=== PATIENT | female | born 1970 | race Caucasian/White ===

== ENCOUNTER 2019-05-18 18:14 | Observation (INO) ==
[2019-05-18] MEDS ORDERED: TESSALON PERLES PO PRN (19:14)
[2019-05-18] MEDS ORDERED: NS 1000 ML 1,000 ML IV ONE (19:14)
[2019-05-18] MEDS ORDERED: NS 1000 ML 1,000 ML ONE ×2 (19:18→19:36)
[2019-05-18 19:54] LABS: BASOPHILS % (AUTO) 0 % (0.2-1.0); EOSINOPHILS % (AUTO) 0.2 % (0.9-2.9); HEMATOCRIT 35.5 % (36.0-47.0); HEMOGLOBIN 12.2 g/dL (12.0-16.0); LYMPHOCYTES # (AUTO) 1.7 X10^3/uL (1.3-2.9); MEAN CORPUSCULAR HEMOGLOBIN 30.1 pg (27.0-34.0); MEAN CORPUSCULAR HGB CONC 34.4 g/dL (33.0-35.0); MEAN CORPUSCULAR VOLUME 87.5 fL (80.0-100.0); MEAN PLATELET VOLUME 8.2 fL (7.4-11.0); MONOCYTES # (AUTO) 0.8 x10^3/uL (0.3-0.8); MONOCYTES % (AUTO) 7.8 % (0.0-13.0); NEUTROPHILS # (AUTO) 7.3 x10^3/uL (2.2-4.8); PLATELET COUNT 193 X10^3/uL (150.0-450.0); RED BLOOD COUNT 4.06 X10^6/uL (3.5-5.4); RED CELL DISTRIBUTION WIDTH 13.7 % (11.6-16.5); WHITE BLOOD COUNT 9.8 X10^3/uL (3.6-10.0)
[2019-05-18 20:04] LABS: ALANINE AMINOTRANSFERASE 35 Units/L (12-78); ALBUMIN 3.7 g/dL (3.4-5.0); ALKALINE PHOSPHATASE 128 Units/L (46-116); ASPARTATE AMINO TRANSFERASE 14 Units/L (15-37); BLOOD UREA NITROGEN 19 mg/dL (7-18); CALCIUM 8.5 mg/dL (8.5-10.1); CARBON DIOXIDE 25.9 mmol/L (21-32); CHLORIDE 105 mmol/L (98-107); SODIUM 141 mmol/L (136-145); TOTAL PROTEIN 7.1 g/dL (6.4-8.2); eGFR NON BLACK RACES > 60 (>60)
[2019-05-18] MEDS ORDERED: TESSALON PERLES PO ONE (20:26)
[2019-05-18] MEDS: NS 1000 ML 1,000 ML IV SCH (20:29)
[2019-05-18] MEDS ORDERED: AMBIEN ONE (20:53)
[2019-05-18] MEDS: AMBIEN PO PRN (20:55)
[2019-05-18] MEDS ORDERED: MICRO K EXTEN CAP 10 MEQ PO PRN (21:33)
[2019-05-18] MEDS ORDERED: POTASSIUM CHL 40 MEQ/NS 0.45% 500 ML IV PRN (21:33)
[2019-05-18] MEDS ORDERED: POTASSIUM CHLORIDE LIQ 20 MEQ UDC PO PRN (21:33)
[2019-05-18] MEDS ORDERED: KLOR-CON PO PRN (21:33)
[2019-05-18] MEDS ORDERED: POTASSIUM CHL 60 MEQ/NS 0.45% 500 ML IV PRN (21:33)
[2019-05-18] MEDS ORDERED: K-RIDER 10 MEQ/NS 100 ML 10 MEQ/100 ML BAG IV PRN (21:33)
[2019-05-18] MEDS: K-DUR TAB 20 MEQ PO PRN ×2 (21:35→21:42)
[2019-05-18] MEDS ORDERED: MAGNESIUM SULFATE 1 GRAM/100 mL PREMIX 2 G/200 ML BAG IV ONE (21:39)
[2019-05-18] MEDS ORDERED: K-DUR TAB 20 MEQ PO ONE (21:39)
[2019-05-18] MEDS: MAGNESIUM SULFATE 1 GRAM/100 mL PREMIX 1 GM/100 ML BAG IV PRN ×2 (21:43→22:40)
[2019-05-18 23:03] VITALS: BMI 24.7
[2019-05-18] MEDS ORDERED: TYLENOL 325 MG TAB PO ONE (23:19)
[2019-05-18] MEDS: TYLENOL 325 MG TAB PO PRN (23:20)
[2019-05-18] MEDS: OMNICEF CAP 300 MG PO SCH (23:59)
[2019-05-19 05:39] LABS: BASOPHILS % (AUTO) 0.2 % (0.2-1.0); EOSINOPHILS % (AUTO) 0.4 % (0.9-2.9); HEMATOCRIT 31.7 % (36.0-47.0); LYMPHOCYTES # (AUTO) 2.8 X10^3/uL (1.3-2.9); LYMPHOCYTES % (AUTO) 32.3 % (21.0-51.0); MEAN CORPUSCULAR HEMOGLOBIN 30.7 pg (27.0-34.0); MEAN CORPUSCULAR HGB CONC 34.7 g/dL (33.0-35.0); MEAN CORPUSCULAR VOLUME 88.5 fL (80.0-100.0); MEAN PLATELET VOLUME 9.3 fL (7.4-11.0); MONOCYTES # (AUTO) 1.2 x10^3/uL (0.3-0.8); MONOCYTES % (AUTO) 13.4 % (0.0-13.0); NEUTROPHILS # (AUTO) 4.7 x10^3/uL (2.2-4.8); NEUTROPHILS % (AUTO) 53.7 % (42.0-75.0); PLATELET COUNT 163 X10^3/uL (150.0-450.0); RED BLOOD COUNT 3.58 X10^6/uL (3.5-5.4); RED CELL DISTRIBUTION WIDTH 13.6 % (11.6-16.5); WHITE BLOOD COUNT 8.8 X10^3/uL (3.6-10.0)
[2019-05-19 05:44] LABS: ALANINE AMINOTRANSFERASE 29 Units/L (12-78); ALBUMIN 2.8 g/dL (3.4-5.0); ALKALINE PHOSPHATASE 107 Units/L (46-116); ASPARTATE AMINO TRANSFERASE 13 Units/L (15-37); BLOOD UREA NITROGEN 12 mg/dL (7-18); CARBON DIOXIDE 24.4 mmol/L (21-32); CHLORIDE 113 mmol/L (98-107); CREATININE 0.62 mg/dL (0.55-1.02); MAGNESIUM 2.6 mg/dL (1.7-2.9); SODIUM 144 mmol/L (136-145); TOTAL PROTEIN 5.8 g/dL (6.4-8.2); eGFR NON BLACK RACES > 60 (>60)
[2019-05-19] MEDS: NS 1000 ML 1,000 ML IV SCH ×2 (06:08→08:49)
[2019-05-19] MEDS ORDERED: NS 1000 ML 1,000 ML IV ONE (06:19)
[2019-05-19] MEDS: OMNICEF CAP 300 MG PO SCH ×2 (08:49→21:03)
[2019-05-19 11:28] LABS: CRYPTOSPORIDIUM PARVUM ANTIGEN NEGATIVE (NEGATIVE); GIARDIA LAMBLIA ANTIGEN NEGATIVE (NEGATIVE)
--- NOTE | 2019-05-19 11:56 | DR.H&P ---
H&P History & Physical for Day of: H&P Date: 05/19/19 Chief Complaint Chief Complaint: Diarrhea and decreased fluid intake Allergies Allergies Allergy/AdvReac Type Severity Reaction Status Date / Time Sulfa (Sulfonamide Allergy Verified 05/18/19 21:09 Antibiotics) [SULFA] History of Present Illness History of Present Illness: Pt is a 49 year old f admitted directly from clinic d/t dehydration and persistent diarrhea. She was recently treated for the flu and just finished course of Tamiflu. She has been having diarrhea since flu sx initially started, now for almost a week. Associated sx of generalized weakness, fatigue, and weight loss of 13 lbs. Past Surgical History Surgical History: Hysterectomy and Ortho Surgery Family History Family Medical History: Diabetes Mellitus and Hypertension Social History Does patient currently use any type of tobacco product: No Type of Tobacco Use: None Does any household member use tobacco: No Alcohol Use: None Drug Use: None Medications Home Medications: Sulfa (Sulfonamide Antibiotics) [SULFA] Allergy (Verified 05/18/19 21:09) CONTINUE taking the following medications alprazolam 1 mg PO BID PRN 05/18/19 [History] buprenorphine HCl 8 mg SUBLINGUAL TID 05/18/19 [History] carisoprodol 350 mg PO BID 05/18/19 [History] naproxen 500 mg PO Q12H PRN 05/18/19 [History] topiramate 200 mg PO BID 05/18/19 [History] vortioxetine [Trintellix] 20 mg PO DAILY 05/18/19 [History] Labs Result Diagrams: 05/19/19 04:25 05/19/19 04:25 Labs: 05/19/19 09:59 Stool - Final Laboratory WBC 8.8 X10^3/uL (3.6-10.0) 05/19/19 04:25 RBC 3.58 X10^6/uL (3.5-5.4) 05/19/19 04:25 Hgb 11.0 g/dL (12.0-16.0) L 05/19/19 04:25 Hct 31.7 % (36.0-47.0) L 05/19/19 04:25 MCV 88.5 fL (80.0-100.0) 05/19/19 04:25 MCH 30.7 pg (27.0-34.0) 05/19/19 04:25 MCHC 34.7 g/dL (33.0-35.0) 05/19/19 04:25 RDW 13.6 % (11.6-16.5) 05/19/19 04:25 Plt Count 163 X10^3/uL (150.0-450.0) 05/19/19 04:25 MPV 9.3 fL (7.4-11.0) 05/19/19 04:25 Neut % (Auto) 53.7 % (42.0-75.0) 05/19/19 04:25 Lymph % (Auto) 32.3 % (21.0-51.0) 05/19/19 04:25 Sebastian % (Auto) 13.4 % (0.0-13.0) H 05/19/19 04:25 Eos % (Auto) 0.4 % (0.9-2.9) L 05/19/19 04:25 Baso % (Auto) 0.2 % (0.2-1.0) 05/19/19 04:25 Neut # (Auto) 4.7 x10^3/uL (2.2-4.8) 05/19/19 04:25 Lymph # (Auto) 2.8 X10^3/uL (1.3-2.9) 05/19/19 04:25 Sebastian # (Auto) 1.2 x10^3/uL (0.3-0.8) H 05/19/19 04:25 Eos # (Auto) 0.0 x10^3/uL (0.0-0.2) 05/19/19 04:25 Baso # (Auto) 0.0 X10^3/uL (0.0-0.1) 05/19/19 04:25 Absolute Nucleated RBC 0.0 /100WBC 05/19/19 04:25 Sodium 144 mmol/L (136-145) 05/19/19 04:25 Corrected Sodium TNP 05/19/19 04:25 Potassium 4.2 mmol/L (3.5-5.1) 05/19/19 04:25 Chloride 113 mmol/L (98-107) H 05/19/19 04:25 Carbon Dioxide 24.4 mmol/L (21-32) 05/19/19 04:25 BUN 12 mg/dL (7-18) 05/19/19 04:25 Creatinine 0.62 mg/dL (0.55-1.02) 05/19/19 04:25 Est GFR (MDRD) Af Amer > 60 (>60) 05/19/19 04:25 Est GFR (MDRD) Non-Af > 60 (>60) 05/19/19 04:25 Glucose 93 mg/dL (65-99) 05/19/19 04:25 Calcium 8.0 mg/dL (8.5-10.1) L 05/19/19 04:25 Corrected Calcium 9.0 mg/dL (8.5-10.1) 05/19/19 04:25 Magnesium 2.6 mg/dL (1.7-2.9) 05/19/19 04:25 Total Bilirubin 0.30 mg/dL (0.2-1.0) 05/19/19 04:25 AST 13 Units/L (15-37) L 05/19/19 04:25 ALT 29 Units/L (12-78) 05/19/19 04:25 Alkaline Phosphatase 107 Units/L (46-116) 05/19/19 04:25 Total Protein 5.8 g/dL (6.4-8.2) L 05/19/19 04:25 Albumin 2.8 g/dL (3.4-5.0) L 05/19/19 04:25 Globulin 3.0 g/dL (2.5-4.5) 05/19/19 04:25 Albumin/Globulin Ratio 0.9 Ratio (1.1-2.1) L 05/19/19 04:25 Stool Description 50g brown unformed 05/19/19 09:59 Stool Description 50g,brown,unformed 05/19/19 09:59 Stl Occult Blood (IFOB) Positive (NEGATIVE) A 05/19/19 09:59 Stool for White Cells Negative (NEGATIVE) 05/19/19 09:59 Stl C. diff Tox B Gene Negative (NEGATIVE) 05/19/19 09:59 Stl C. diff 027-NAP1-BI Negative (NEGATIVE) 05/19/19 09:59 Cryptosporid parvum Ag Negative (NEGATIVE) 05/19/19 09:59 Giardia lamblia Ag Negative (NEGATIVE) 05/19/19 09:59 Review of Systems Constitutional: Weakness and Malaise Eyes: No Symptoms Reported ENT: No Symptoms Reported Respiratory: No Symptoms Reported Cardiovascular: No Symptoms Reported Gastrointestinal: Diarrhea; denies Nausea and Vomiting Genitourinary: denies Dysuria and Hematuria Musculoskeletal: Other (generalized myalgia) Skin: No Symptoms Reported Neurological: No Symptoms Reported Physical Exam Vital Signs: Temperature 98.2 F Pulse Rate [Bilateral] 76 Respiratory Rate 20 Blood Pressure [Right Arm] 103/53 O2 Sat by Pulse Oximetry 100 Oriented: Normal Eyes: Normal Ear: Normal Nose: Normal Respiratory: Clear Throughout Cardiovascular: Normal : Normal Auscultation: Bowel Sounds: Increased Palpation: Normal Tenderness: Epigastric and Mild Skin: Normal Musculoskeletal: Normal Psychiatric: Normal Mood Description: Calm Speech Pattern: Clear Assessment/Plan (1) Dehydration: Status: Acute Plan: IVF, CLD, advance as tolerated (2) Diarrhea: Status: Acute Plan: StoolCx pending (3) Otitis media: Status: Acute Plan: Abx:Cefdinir Review H&P Reviewed: Yes Patient was examined?: Yes
[2019-05-19] MEDS ORDERED: SUBOXONE TAB SL SCH (14:00)
[2019-05-19] MEDS: TOPAMAX TAB 100 MG PO SCH ×2 (14:13→21:03)
[2019-05-19] MEDS: SOMA TAB 350 MG PO SCH ×2 (14:13→21:02)
[2019-05-19] MEDS: NAPROSYN PO PRN (14:14)
[2019-05-19] MEDS ORDERED: ZOFRAN INJ 4 MG VIAL IVP ONE (17:12)
[2019-05-19] MEDS ORDERED: ZOFRAN INJ 4 MG VIAL ONE (17:14)
[2019-05-19] MEDS: AMBIEN PO PRN (21:01)
[2019-05-19] MEDS: PATIENT'S HOME MEDICATION SL SCH (22:00)
[2019-05-20] MEDS: NS 1000 ML 1,000 ML IV SCH ×3 (03:23→23:30)
[2019-05-20] MEDS: ZOFRAN TAB 4 MG PO PRN (04:16)
[2019-05-20] MEDS: NAPROSYN PO PRN (04:16)
[2019-05-20] MEDS ORDERED: NS 100 ML IV 100 ML IV ONE (05:20)
[2019-05-20] MEDS: PATIENT'S HOME MEDICATION SL SCH ×3 (06:00→21:25)
[2019-05-20 06:06] LABS: BASOPHILS % (AUTO) 0.3 % (0.2-1.0); EOSINOPHILS # (AUTO) 0.1 x10^3/uL (0.0-0.2); EOSINOPHILS % (AUTO) 1.2 % (0.9-2.9); HEMATOCRIT 32.7 % (36.0-47.0); HEMOGLOBIN 11.2 g/dL (12.0-16.0); LYMPHOCYTES # (AUTO) 2.4 X10^3/uL (1.3-2.9); LYMPHOCYTES % (AUTO) 48.5 % (21.0-51.0); MEAN CORPUSCULAR HEMOGLOBIN 30.1 pg (27.0-34.0); MEAN CORPUSCULAR HGB CONC 34.3 g/dL (33.0-35.0); MEAN CORPUSCULAR VOLUME 87.7 fL (80.0-100.0); MEAN PLATELET VOLUME 8.6 fL (7.4-11.0); MONOCYTES # (AUTO) 0.6 x10^3/uL (0.3-0.8); MONOCYTES % (AUTO) 11.5 % (0.0-13.0); NEUTROPHILS # (AUTO) 1.9 x10^3/uL (2.2-4.8); NEUTROPHILS % (AUTO) 38.5 % (42.0-75.0); PLATELET COUNT 169 X10^3/uL (150.0-450.0); RED BLOOD COUNT 3.72 X10^6/uL (3.5-5.4); RED CELL DISTRIBUTION WIDTH 13.7 % (11.6-16.5); WHITE BLOOD COUNT 4.9 X10^3/uL (3.6-10.0)
[2019-05-20 06:19] LABS: ALANINE AMINOTRANSFERASE 36 Units/L (12-78); ALBUMIN 2.8 g/dL (3.4-5.0); ALKALINE PHOSPHATASE 127 Units/L (46-116); ASPARTATE AMINO TRANSFERASE 30 Units/L (15-37); BLOOD UREA NITROGEN 4 mg/dL (7-18); CALCIUM 8.2 mg/dL (8.5-10.1); CARBON DIOXIDE 23.7 mmol/L (21-32); CHLORIDE 114 mmol/L (98-107); COR CA(FOR HYPOALB) 9.2 mg/dL (8.5-10.1); CREATININE 0.55 mg/dL (0.55-1.02); SODIUM 145 mmol/L (136-145); TOTAL PROTEIN 5.8 g/dL (6.4-8.2); eGFR NON BLACK RACES > 60 (>60)
--- NOTE | 2019-05-20 08:48 | PCM.PROG ---
Progress Note Progress Note for Day of Date of Exam: 05/20/19 Subjective Subjective: Pt is a 49 y/o f admitted directly from clinic d/t dehydration and persistent diarrhea. She was recently treated for the flu and just finished course of Tamiflu. She has been having diarrhea since flu sx initially started, now for over a week now. She has been complaining of abdominal pain and reports having close to 12 BM yesterday. Stool culture prelim negative for campy, c. diff, however was positive for blood. Will get CT abd/pelv to rule out diverticulitis, increase IVF to 150ml/h. Consult [facility]rence for evaluation. Will keep on CLD until recs and can start immodium for sx relief. Past Medical Family Social History Past Med/Fam/Surg Hx: No changes since H&P Allergies: Allergies Sulfa (Sulfonamide Antibiotics) [SULFA] Allergy (Verified 05/18/19 21:09) Review of Systems ROS: No change since H&P Vital Signs and I&O's Vital Signs: Temperature 97.8 F Pulse Rate [Bilateral] 66 Respiratory Rate 18 Blood Pressure [Right Arm] 97/51 O2 Sat by Pulse Oximetry 99 Intake and Output: Intake & Output 05/17/19 05/18/19 05/19/19 05/20/19 23:59 23:59 23:59 23:59 Intake Total 1800 / 1800 6208 / 6208 625 / 625 Balance 1800 / 1800 6208 / 6208 625 / 625 Physical Exam Oriented: Normal Eyes: Normal Ear: Normal Nose: Normal Respiratory: Normal Cardiovascular: Normal : Normal Auscultation: Bowel Sounds: Increased Tenderness: Epigastric and Mild Skin: Normal Musculoskeletal: Normal Psychiatric: Normal Mood Description: Calm Speech Pattern: Clear and Appropriate Laboratory and Diagnostics Result Diagrams: 05/20/19 04:52 05/20/19 04:52 Labs: 05/19/19 09:59 Stool - Final Laboratory WBC 4.9 X10^3/uL (3.6-10.0) 05/20/19 04:52 RBC 3.72 X10^6/uL (3.5-5.4) 05/20/19 04:52 Hgb 11.2 g/dL (12.0-16.0) L 05/20/19 04:52 Hct 32.7 % (36.0-47.0) L 05/20/19 04:52 MCV 87.7 fL (80.0-100.0) 05/20/19 04:52 MCH 30.1 pg (27.0-34.0) 05/20/19 04:52 MCHC 34.3 g/dL (33.0-35.0) 05/20/19 04:52 RDW 13.7 % (11.6-16.5) 05/20/19 04:52 Plt Count 169 X10^3/uL (150.0-450.0) 05/20/19 04:52 MPV 8.6 fL (7.4-11.0) 05/20/19 04:52 Neut % (Auto) 38.5 % (42.0-75.0) L 05/20/19 04:52 Lymph % (Auto) 48.5 % (21.0-51.0) 05/20/19 04:52 Yates % (Auto) 11.5 % (0.0-13.0) 05/20/19 04:52 Eos % (Auto) 1.2 % (0.9-2.9) 05/20/19 04:52 Baso % (Auto) 0.3 % (0.2-1.0) 05/20/19 04:52 Neut # (Auto) 1.9 x10^3/uL (2.2-4.8) L 05/20/19 04:52 Lymph # (Auto) 2.4 X10^3/uL (1.3-2.9) 05/20/19 04:52 Yates # (Auto) 0.6 x10^3/uL (0.3-0.8) 05/20/19 04:52 Eos # (Auto) 0.1 x10^3/uL (0.0-0.2) 05/20/19 04:52 Baso # (Auto) 0.0 X10^3/uL (0.0-0.1) 05/20/19 04:52 Absolute Nucleated RBC 0.0 /100WBC 05/20/19 04:52 Sodium 145 mmol/L (136-145) 05/20/19 04:52 Corrected Sodium TNP 05/20/19 04:52 Potassium 3.6 mmol/L (3.5-5.1) 05/20/19 04:52 Chloride 114 mmol/L (98-107) H 05/20/19 04:52 Carbon Dioxide 23.7 mmol/L (21-32) 05/20/19 04:52 BUN 4 mg/dL (7-18) L 05/20/19 04:52 Creatinine 0.55 mg/dL (0.55-1.02) 05/20/19 04:52 Est GFR (MDRD) Af Amer > 60 (>60) 05/20/19 04:52 Est GFR (MDRD) Non-Af > 60 (>60) 05/20/19 04:52 Glucose 87 mg/dL (65-99) 05/20/19 04:52 Calcium 8.2 mg/dL (8.5-10.1) L 05/20/19 04:52 Corrected Calcium 9.2 mg/dL (8.5-10.1) 05/20/19 04:52 Magnesium 2.6 mg/dL (1.7-2.9) 05/19/19 04:25 Total Bilirubin 0.30 mg/dL (0.2-1.0) 05/20/19 04:52 AST 30 Units/L (15-37) 05/20/19 04:52 ALT 36 Units/L (12-78) 05/20/19 04:52 Alkaline Phosphatase 127 Units/L (46-116) H 05/20/19 04:52 Total Protein 5.8 g/dL (6.4-8.2) L 05/20/19 04:52 Albumin 2.8 g/dL (3.4-5.0) L 05/20/19 04:52 Globulin 3.0 g/dL (2.5-4.5) 05/20/19 04:52 Albumin/Globulin Ratio 0.9 Ratio (1.1-2.1) L 05/20/19 04:52 Stool Description 50g brown unformed 05/19/19 09:59 Stool Description 50g,brown,unformed 05/19/19 09:59 Stl Occult Blood (IFOB) Positive (NEGATIVE) A 05/19/19 09:59 Stool for White Cells Negative (NEGATIVE) 05/19/19 09:59 Stl C. diff Tox B Gene Negative (NEGATIVE) 05/19/19 09:59 Stl C. diff 027-NAP1-BI Negative (NEGATIVE) 05/19/19 09:59 Cryptosporid parvum Ag Negative (NEGATIVE) 05/19/19 09:59 Giardia lamblia Ag Negative (NEGATIVE) 05/19/19 09:59 Plan (1) Dehydration: Status: Acute Plan: IVF, CLD, advance as tolerated (2) Diarrhea: Status: Acute Plan: StoolCx pending (3) Otitis media: Status: Acute Plan: Abx:Cefdinir (4) Abdominal pain: Status: Acute Plan: CT abd/pelv ordered.
[2019-05-20] MEDS ORDERED: PATIENT'S HOME MEDICATION PO SCH (09:00)
[2019-05-20] MEDS: OMNICEF CAP 300 MG PO SCH ×2 (09:06→20:45)
[2019-05-20] MEDS: PATIENT'S HOME MEDICATION PO SCH (09:06)
[2019-05-20] MEDS: TOPAMAX TAB 100 MG PO SCH ×2 (09:06→20:45)
[2019-05-20] MEDS: XANAX PO PRN (09:06)
[2019-05-20] MEDS: SOMA TAB 350 MG PO SCH ×2 (09:07→20:45)
[2019-05-20] MEDS: K-DUR TAB 20 MEQ PO PRN (09:12)
--- NOTE | 2019-05-20 11:04 | CT ---
HISTORYabdominal painSTUDYCT abdomen and pelvis after intravenous contrast infusion. Dose reduction techniques were utilized. Sagittal and coronal reformations were provided.COMPARISONNoneFINDINGSThere is a patchy infiltrate multifocal, in the left lower lobe. There is no effusion. The liver and spleen are normal in size. There is intrahepatic biliary dilatation diffusely. The common hepatic duct measures up to 1.66 cm diameter. No distal common duct stone or stricture is demonstrated. The gallbladder is surgically absent. No pancreatic mass is demonstrated. The kidneys and adrenal glands are unremarkable except for an approximately 3.5 cm in diameter cyst exophytic and lateral to the lower pole of the left kidney and a 2.3 cm cyst exophytic in inferior to the lower pole of the left kidney. There is no hydronephrosis. No renal calculus is demonstrated. The uterus is absent. There is no adnexal mass. The urinary bladder is unremarkable. There is sigmoid diverticulosis without inflammatory changes demonstrated. The position of the cecum crosses the midline from right to left. I do not visualize an abnormal appendix. No significant bony abnormality is demonstrated.IMPRESSION1. Prominent biliary dilatation status post cholecystectomy. No common duct stone or pancreatic mass demonstrated. This may be physiologic but is prominent.2. Left renal cysts and mild sigmoid diverticulosis.Electronically signed by: DIRK HOLLIS (May 20, 2019 11:02:50)
[2019-05-20] MEDS: FLAGYL IV PREMIX 500 MG BAG 500 MG/100 ML BAG IV SCH ×3 (11:18→21:25)
[2019-05-20] MEDS: TYLENOL 325 MG TAB PO PRN ×2 (12:01→16:02)
--- NOTE | 2019-05-20 13:28 | RAD ---
HISTORYInfiltrate on CTSTUDYChest PA and lateral viewsCOMPARISONNone availableFINDINGSNormal heart size. Essentially clear left lung. Spinal stimulator device in thoracic spinal canal. Nodular infiltrate about 1.5 cm diameter in the periphery of the right upper lung. There is no internal calcification. On lateral view, the density position is suggestive for superior segment of lower lobe. No definite adenopathy or pleural fluid.IMPRESSIONRight lung infiltrate as described may be inflammatory or neoplastic. Comparison with prior imaging recommended to determine acute versus chronic. Follow-up indicated.Electronically signed by: ASIF BOSS (May 20, 2019 13:27:34)
[2019-05-20 13:37] LABS: MYCOPLASMA PNEUMONIAE IGM AB NEGATIVE (NEGATIVE)
[2019-05-20] MEDS: IMODIUM CAP 2 MG PO PRN ×2 (14:53→23:55)
[2019-05-20] MEDS: CULTURELLE PRO-WELL PROBIOTIC CAP PO SCH (14:54)
[2019-05-21] MEDS: FLAGYL IV PREMIX 500 MG BAG 500 MG/100 ML BAG IV SCH ×2 (05:06→15:38)
[2019-05-21] MEDS: PATIENT'S HOME MEDICATION SL SCH ×2 (05:07→15:38)
[2019-05-21 05:45] LABS: BASOPHILS % (AUTO) 0.4 % (0.2-1.0); EOSINOPHILS # (AUTO) 0.1 x10^3/uL (0.0-0.2); EOSINOPHILS % (AUTO) 1.5 % (0.9-2.9); HEMATOCRIT 36.5 % (36.0-47.0); HEMOGLOBIN 12.3 g/dL (12.0-16.0); LYMPHOCYTES % (AUTO) 53.4 % (21.0-51.0); MEAN CORPUSCULAR HGB CONC 33.8 g/dL (33.0-35.0); MEAN CORPUSCULAR VOLUME 88.7 fL (80.0-100.0); MEAN PLATELET VOLUME 8.6 fL (7.4-11.0); MONOCYTES # (AUTO) 0.4 x10^3/uL (0.3-0.8); MONOCYTES % (AUTO) 7.5 % (0.0-13.0); NEUTROPHILS # (AUTO) 2.1 x10^3/uL (2.2-4.8); NEUTROPHILS % (AUTO) 37.2 % (42.0-75.0); PLATELET COUNT 233 X10^3/uL (150.0-450.0); RED BLOOD COUNT 4.12 X10^6/uL (3.5-5.4); RED CELL DISTRIBUTION WIDTH 13.6 % (11.6-16.5); WHITE BLOOD COUNT 5.6 X10^3/uL (3.6-10.0)
[2019-05-21 06:03] LABS: ALANINE AMINOTRANSFERASE 37 Units/L (12-78); ALBUMIN 3.2 g/dL (3.4-5.0); ALKALINE PHOSPHATASE 140 Units/L (46-116); ASPARTATE AMINO TRANSFERASE 22 Units/L (15-37); BLOOD UREA NITROGEN 2 mg/dL (7-18); CALCIUM 8.3 mg/dL (8.5-10.1); CARBON DIOXIDE 23.5 mmol/L (21-32); CHLORIDE 114 mmol/L (98-107); COR CA(FOR HYPOALB) 8.9 mg/dL (8.5-10.1); CREATININE 0.64 mg/dL (0.55-1.02); SODIUM 147 mmol/L (136-145); TOTAL PROTEIN 6.5 g/dL (6.4-8.2); eGFR NON BLACK RACES > 60 (>60)
[2019-05-21] MEDS: NAPROSYN PO PRN (06:24)
[2019-05-21] MEDS: OMNICEF CAP 300 MG PO SCH (08:36)
[2019-05-21] MEDS: TOPAMAX TAB 100 MG PO SCH (08:36)
[2019-05-21] MEDS: CULTURELLE PRO-WELL PROBIOTIC CAP PO SCH (08:37)
[2019-05-21] MEDS: SOMA TAB 350 MG PO SCH (08:37)
[2019-05-21] MEDS: PATIENT'S HOME MEDICATION PO SCH (08:37)
[2019-05-21] MEDS: IMODIUM CAP 2 MG PO PRN (08:42)
[2019-05-21] MEDS: ZOFRAN TAB 4 MG PO PRN (10:48)
[2019-05-21] MEDS: XANAX PO PRN (12:34)
--- NOTE | 2019-05-21 12:48 | CT ---
HISTORYRight lung inflammatory versus neoplastic.STUDYCHEST WITH CONCOMPARISONNone.TECHNIQUEMultiple axial images of the chest were obtained from the thoracic inlet to the upper abdomen without the administration of IV contrast. Dose reduction techniques including Automated Exposure Control (AEC) and adjustment of mA and kV were utilized.FINDINGSThere are few shotty lymph nodes, likely reactive in the mediastinum. No pathologically enlarged lymph nodes are identified. The heart is normal in appearance. There is no significant pericardial effusion. The aorta is normal appearance, without evidence of aneurysm or dissection. The main pulmonary arteries have a normal nonenhanced appearance.There multiple solitary and conglomerate nodular opacities, some with spiculated margins in both upper lobes, and both lower lobes. The largest cluster of nodular densities in the left lower lobe. There is no evidence of consolidation, significant effusion or pneumothorax.There is no acute osseous injury.The visualized solid visceral organs in the upper abdomen are unremarkable.IMPRESSIONSolitary and conglomerate nodular opacities in both upper lobes and both lower lobes as described above. Differential considerations would include infectious, inflammatory and neoplastic processes. Clinical correlation is required.Electronically signed by: HAILEE MORALES (May 21, 2019 12:46:32)
--- NOTE | 2019-05-21 13:40 | W.DIS.FURT ---
Summary of Discharge Discharge Summary of Date Date of Exam: 05/21/19 Admission Date Date of Admission: 05/19/19 Admission Diagnosis Hospital Course: Pt is a 49 y/o f admitted directly from clinic d/t dehydration and persistent diarrhea. She was recently treated for the flu and had been having diarrhea for over a week. She received IVF, had stool cultures performed that were negative for campy, c. diff, however was positive for blood. Dr Rodriguez (Gen Surg) consulted and recommended course of flagyl and outpt colonoscopy. CT abd/pelv ruled out diverticulitis, however noted on possible lung infiltrate. CT chest done with results: Solitary and conglomerate nodular opacities in both upper lobes and both lower lobes as described above. Differential considerations would include infectious,inflammatory and neoplastic processes. Discussed results w/ pt and recommend further evaluation by pulmonary outpatient. Referral placed. Pt was discharged with rx immodium, probiotics, flagyl, and omnicef. Pt instructed to follow up with pcp within 1 week. Vital Signs: Vital Signs (72 hours) 05/18/19 19:15 05/18/19 23:20 05/19/19 00:00 Temperature 98.0 F 99.0 F Pulse Rate [Bilateral] 92 H 78 Respiratory Rate 22 18 18 Blood Pressure [Right Arm] 111/58 89/53 O2 Sat by Pulse Oximetry 100 05/19/19 00:20 05/19/19 05:00 05/19/19 05:02 Temperature 98.1 F Pulse Rate [Bilateral] Respiratory Rate 20 20 Blood Pressure [Right Arm] 78/39 79/44 O2 Sat by Pulse Oximetry 05/19/19 05:11 05/19/19 05:30 05/19/19 06:00 Temperature Pulse Rate [Bilateral] 61 61 Respiratory Rate Blood Pressure [Right Arm] 83/49 84/47 O2 Sat by Pulse Oximetry 96 96 05/19/19 08:00 05/19/19 12:00 05/19/19 16:00 Temperature 98.2 F 97.6 F 98.5 F Pulse Rate [Bilateral] 76 67 79 Respiratory Rate 20 20 20 Blood Pressure [Right Arm] 103/53 108/56 117/56 O2 Sat by Pulse Oximetry 100 98 100 05/19/19 20:00 05/20/19 00:00 05/20/19 04:00 Temperature 98.1 F 98.2 F 97.8 F Pulse Rate [Bilateral] 71 64 66 Respiratory Rate 19 16 18 Blood Pressure [Right Arm] 118/59 106/59 97/51 O2 Sat by Pulse Oximetry 100 99 99 05/20/19 08:00 05/20/19 12:00 05/20/19 12:01 Temperature 97.5 F L 97.2 F L Pulse Rate [Bilateral] 54 L 66 Respiratory Rate 16 18 18 Blood Pressure [Right Arm] 114/56 116/58 O2 Sat by Pulse Oximetry 98 100 05/20/19 13:01 05/20/19 16:00 05/20/19 16:02 Temperature 97.2 F L Pulse Rate [Bilateral] 62 Respiratory Rate 18 18 18 Blood Pressure [Right Arm] 120/59 O2 Sat by Pulse Oximetry 100 05/20/19 17:02 05/20/19 21:00 05/21/19 04:00 Temperature 98.4 F 98.6 F Pulse Rate [Bilateral] 73 62 Respiratory Rate 18 20 20 Blood Pressure [Right Arm] 120/68 112/57 O2 Sat by Pulse Oximetry 100 100 05/21/19 08:00 Temperature 97.3 F L Pulse Rate [Bilateral] 67 Respiratory Rate 18 Blood Pressure [Right Arm] 123/59 O2 Sat by Pulse Oximetry 100 Labs: Laboratory Last Values WBC 5.6 X10^3/uL (3.6-10.0) 05/21/19 04:25 RBC 4.12 X10^6/uL (3.5-5.4) 05/21/19 04:25 Hgb 12.3 g/dL (12.0-16.0) 05/21/19 04:25 Hct 36.5 % (36.0-47.0) 05/21/19 04:25 MCV 88.7 fL (80.0-100.0) 05/21/19 04:25 MCH 30.0 pg (27.0-34.0) 05/21/19 04:25 MCHC 33.8 g/dL (33.0-35.0) 05/21/19 04:25 RDW 13.6 % (11.6-16.5) 05/21/19 04:25 Plt Count 233 X10^3/uL (150.0-450.0) 05/21/19 04:25 MPV 8.6 fL (7.4-11.0) 05/21/19 04:25 Neut % (Auto) 37.2 % (42.0-75.0) L 05/21/19 04:25 Lymph % (Auto) 53.4 % (21.0-51.0) H 05/21/19 04:25 Campbell % (Auto) 7.5 % (0.0-13.0) 05/21/19 04:25 Eos % (Auto) 1.5 % (0.9-2.9) 05/21/19 04:25 Baso % (Auto) 0.4 % (0.2-1.0) 05/21/19 04:25 Neut # (Auto) 2.1 x10^3/uL (2.2-4.8) L 05/21/19 04:25 Lymph # (Auto) 3.0 X10^3/uL (1.3-2.9) H 05/21/19 04:25 Campbell # (Auto) 0.4 x10^3/uL (0.3-0.8) 05/21/19 04:25 Eos # (Auto) 0.1 x10^3/uL (0.0-0.2) 05/21/19 04:25 Baso # (Auto) 0.0 X10^3/uL (0.0-0.1) 05/21/19 04:25 Absolute Nucleated RBC 0.1 /100WBC 05/21/19 04:25 Sodium 147 mmol/L (136-145) H 05/21/19 04:25 Corrected Sodium TNP 05/21/19 04:25 Potassium 3.8 mmol/L (3.5-5.1) 05/21/19 08:35 Chloride 114 mmol/L (98-107) H 05/21/19 04:25 Carbon Dioxide 23.5 mmol/L (21-32) 05/21/19 04:25 BUN 2 mg/dL (7-18) L 05/21/19 04:25 Creatinine 0.64 mg/dL (0.55-1.02) 05/21/19 04:25 Est GFR (MDRD) Af Amer > 60 (>60) 05/21/19 04:25 Est GFR (MDRD) Non-Af > 60 (>60) 05/21/19 04:25 Glucose 72 mg/dL (65-99) 05/21/19 04:25 Calcium 8.3 mg/dL (8.5-10.1) L 05/21/19 04:25 Corrected Calcium 8.9 mg/dL (8.5-10.1) 05/21/19 04:25 Magnesium 2.6 mg/dL (1.7-2.9) 05/19/19 04:25 Total Bilirubin 0.20 mg/dL (0.2-1.0) 05/21/19 04:25 AST 22 Units/L (15-37) 05/21/19 04:25 ALT 37 Units/L (12-78) 05/21/19 04:25 Alkaline Phosphatase 140 Units/L (46-116) H 05/21/19 04:25 Total Protein 6.5 g/dL (6.4-8.2) 05/21/19 04:25 Albumin 3.2 g/dL (3.4-5.0) L 05/21/19 04:25 Globulin 3.3 g/dL (2.5-4.5) 05/21/19 04:25 Albumin/Globulin Ratio 1.0 Ratio (1.1-2.1) L 05/21/19 04:25 Stool Description 50g brown unformed 05/19/19 09:59 Stool Description 50g,brown,unformed 05/19/19 09:59 Stl Occult Blood (IFOB) Positive (NEGATIVE) A 05/19/19 09:59 Stool for White Cells Negative (NEGATIVE) 05/19/19 09:59 Stl C. diff Tox B Gene Negative (NEGATIVE) 05/19/19 09:59 Stl C. diff 027-NAP1-BI Negative (NEGATIVE) 05/19/19 09:59 Cryptosporid parvum Ag Negative (NEGATIVE) 05/19/19 09:59 Giardia lamblia Ag Negative (NEGATIVE) 05/19/19 09:59 Mycoplasma pneumon IgG Negative (NEGATIVE) 05/20/19 04:52 Reason For Visit: DEHYDRATION, WEAKNESS, ZOLTAN MEDIA/LEFT EAR Discharge Date Discharge Date: 05/21/19 Discharge Diagnosis All Active Problems (Updated 05/20/19 @ 08:58 by Stewart Medrano) Abdominal pain (Acute) Otitis media (Acute) Diarrhea (Acute) Dehydration (Acute) Plan of Treatment: Continue with present treatment and follow up plan. Pt is to keep follow up appointment as instructed and take medications as ordered. Discharge Medications Discharge Medications: Sulfa (Sulfonamide Antibiotics) [SULFA] Allergy (Verified 05/18/19 21:09) CONTINUE taking the following medications Trintellix 20 mg PO DAILY 05/18/19 [History] alprazolam 1 mg PO BID PRN 05/18/19 [History] buprenorphine HCl 8 mg SUBLINGUAL TID 05/18/19 [History] carisoprodol 350 mg PO BID 05/18/19 [History] naproxen 500 mg PO Q12H PRN 05/18/19 [History] topiramate 200 mg PO BID 05/18/19 [History] New Prescriptions Lactobac #2-Bifido #1-S. therm [VSL#3] 2 cap PO BID 15 Days #60 cap 05/21/19 [Rx] cefdinir 300 mg PO Q12HR 5 Days #10 cap 05/21/19 [Rx] loperamide 2 mg PO TID PRN 10 Days #30 cap 05/21/19 [Rx] metronidazole 500 mg PO TID 5 Days #15 tab 05/21/19 [Rx] Discharge Disposition Discharge Disposition: Home
[2019-05-21 13:47] VITALS: BP 122/64
[2019-05-21] MEDS: NS 1000 ML 1,000 ML IV SCH (15:38)
[2019-05-21] MEDS ORDERED: VSL#3 PO SCH (21:00)
== END 2019-05-21 15:20 | disposition home or self-care (01) ==
LOC: ICU
PROVIDERS: ADMIT Family Medicine; ATTEND Family Medicine
DX: E87.6 Hypokalemia; K92.1 Melena; K57.30 Diverticulosis of large intestine without perforation or abscess without bleeding; R19.7 Diarrhea, unspecified; E86.0 Dehydration; R63.0 Anorexia; N28.1 Cyst of kidney, acquired; H65.02 Acute serous otitis media, left ear; R53.83 Other fatigue; R10.84 Generalized abdominal pain; R53.1 Weakness
CPT/HCPCS: 36415; 71020; 71046; 71260; 74177; 80053; 82270; 83630; 83735; 84132; 85025; 86060; 86738; 87045; 87070; 87205; 87328; 87329; 87427; 87449; 87493; 87899; 96360; 96361; 96374; A4222; G0378; J2405; J3475; J3490; J7030; S0030; S0119; S0181